=== PATIENT | male | born 1985 | race Two or more races ===

== ENCOUNTER 2022-03-31 00:12 | Inpatient (IN) | payer SELFPAY ==
[~2022-03-31] VITALS: Ht 177.8 cm; Wt 75.0 kg
[2022-03-31] VITALS (23 sets, daily range): BP systolic 116–140; BP diastolic 60–85
[2022-03-31] MEDS ORDERED: ondansetron/PF 4mg/2ml inj IV ONE (00:50)
[2022-03-31] MEDS ORDERED: fentaNYL/PF 50MCG/1 ML 2ML syringe IV ONE (00:50)
[2022-03-31] MEDS ORDERED: normal saline 1000ml 1,000 ML IV ONE (00:50)
[2022-03-31 00:53] LABS: BASOPHILS # (AUTO) 0.1 X10'3 (0-0.2); BASOPHILS % (AUTO) 0.5 % (0-1); EOSINOPHILS # (AUTO) 0.1 X10'3 (0-0.9); EOSINOPHILS % (AUTO) 0.4 % (0-6); HEMATOCRIT 45.8 % (42.0-52.0); HEMOGLOBIN 15.7 g/dl (14.0-17.9); LYMPHOCYTES # (AUTO) 1.3 X10'3 (1.1-4.8); LYMPHOCYTES % (AUTO) 8.4 % (21-51); MEAN CORPUSCULAR HEMOGLOBIN 30.7 PG (27.0-31.0); MEAN CORPUSCULAR HGB CONC 34.2 g/dL (33.0-36.5); MEAN CORPUSCULAR VOLUME 89.9 FL (78-98); MEAN PLATELET VOLUME 9.3 FL (7.4-10.4); MONOCYTES % (AUTO) 6.4 % (2-12); NEUTROPHILS # (AUTO) 13.1 X10'3 (1.8-7.7); NEUTROPHILS % (AUTO) 84.3 % (42-75); PLATELET COUNT 287 X10'3 (140-440); RED CELL DISTRIBUTION WIDTH 14.2 % (11.5-14.5); WHITE BLOOD COUNT 15.5 X10'3 (4.5-11.0)
[2022-03-31 01:08] LABS: ALANINE AMINOTRANSFERASE 56 U/L (12-78); ALBUMIN/GLOBULIN RATIO 1.2 (1.1-1.5); ALKALINE PHOSPHATASE 64 IU/L (46-116); ANION GAP 8 (8-16); ASPARTATE AMINO TRANSFERASE 21 U/L (10-37); BILIRUBIN,TOTAL 0.2 MG/DL (0.1-1.0); BLOOD UREA NITROGEN 18 MG/DL (7-18); BUN/CREATININE RATIO 16.4 (5.4-32.0); CALCIUM 8.9 MG/DL (8.5-10.1); CHLORIDE 106 MMOL/L (99-107); GLUCOSE 136 MG/DL (70-104); LIPASE 246 U/L (73-393); POTASSIUM 3.6 MMOL/L (3.5-5.1); SODIUM 141 MMOL/L (135-145); TOTAL PROTEIN 7.4 G/DL (6.4-8.2); eGFR 76 ML/MIN
[2022-03-31] MEDS ORDERED: morphine 4 MG/ML inj SYRINge IV ONE ×2 (04:00→07:25)
[2022-03-31] MEDS ORDERED: piperacillin/tazo 3.375gm/50ml 50 ML IV ONE (04:15)
[2022-03-31] MEDS ORDERED: HYDROmorphone 1 mg/ml syringe IV ONE (04:45)
[2022-03-31] MEDS ORDERED: pantoprazole IV 80 MG in normal saline 100ml IV soln 100 ML IV ONE (04:45)
[2022-03-31] MEDS ORDERED: POTASSIUM BICARB 20meq eff tab 20 MEQ TABLET.EFF PO PRN ×2 (06:05)
[2022-03-31] MEDS ORDERED: mag hydrox/Alum hydrox/simeth 30ml oral suspension PO PRN (06:05)
[2022-03-31] MEDS ORDERED: magnesium Cl slow-release 64mg tablet PO PRN (06:05)
[2022-03-31] MEDS ORDERED: magnesium hydroxide 30ml (MOM) UD suspension PO PRN (06:05)
[2022-03-31] MEDS ORDERED: magnesium 2GM in 50ml NS 50 ML IV PRN (06:05)
[2022-03-31] MEDS ORDERED: magnesium 4gm in 100ml NS 100 ML IV PRN (06:05)
[2022-03-31] MEDS ORDERED: acetaminophen 325mg tablet PO PRN (06:05)
[2022-03-31] MEDS ORDERED: HYDROmorphone/PF 0.2 MG/ML SYRINGE IV PRN (06:05)
[2022-03-31] MEDS ORDERED: ondansetron/PF 4mg/2ml inj IV PRN ×2 (06:05→13:00)
[2022-03-31] MEDS ORDERED: potassium CL 10mEq/100ml bag 100 ML IV PRN (06:05)
--- NOTE | 2022-03-31 07:13 | NUR ---
PT IS YELLING OUT IN PAIN. PT LAST DOSE OF PAIN MEDS WAS <2 HOURS AGO. PT WAS GIVEN MORPHINE AND DILAUIDID. NEXT DOSE OF PAIN MEDS IS NOT DUE FOR 2 HOURS.
--- NOTE | 2022-03-31 07:34 | NUR ---
PER DR. BRAVO, GIVE MORPHINE NOW FOR PAIN. HE WILL ALSO ORDER PRN DOSE IN ADDITION TO PAIN MED ORDERS BY HOSPITALIST. TO DISCUSS CHANGES WITH HOSPITALIST.
[2022-03-31] MEDS: dextrose 5%-1/2 normal saline 1,000 ML IV SCH ×2 (07:36→23:57)
[2022-03-31] MEDS: piperacillin/tazo 3.375gm/50ml 50 ML IV SCH ×2 (07:36→21:00)
[2022-03-31] MEDS: docusate sod 100mg capsule PO SCH ×2 (08:00→20:00)
[2022-03-31] MEDS: K and/or MAG REPLACEMENT MC SCH ×2 (08:00→20:00)
[2022-03-31 08:05] LABS: MAGNESIUM 1.8 MG/DL (1.5-2.4); POTASSIUM 3.8 MMOL/L (3.5-5.1)
[2022-03-31] MEDS: HYDROmorphone inj. 0.5 MG/0.5 ML DISP.SYRIN IV PRN ×2 (11:16→19:03)
[2022-03-31] MEDS: pantoprazole 40MG/NS 100ML BAG 100 ML IV SCH ×2 (11:24→21:26)
[2022-03-31 11:55] LABS: UA COLLECTION TYPE URINAL
[2022-03-31 11:56] LABS: CLARITY,URINE CLEAR (Clear); COLOR,URINE YELLOW (Yellow); GLUCOSE, URINE NEGATIVE (Neg); KETONES,URINE NEGATIVE (Neg); LEUKOCYTE ESTERASE ,URINE NEGATIVE (Neg); NITRITES, URINE NEGATIVE (Neg); OCCULT BLOOD,URINE NEGATIVE (Neg); PH,URINE 6.5 (4.8-8.0); PROTEIN,URINE NEGATIVE (Neg); UROBILINOGEN,URINE 0.2 E.U/dL (0.2-1.0)
[2022-03-31 11:59] LABS: URINE AMPHETAMINE SCREEN NEGATIVE (Neg); URINE BARBITUATE SCREEN NEGATIVE (Neg); URINE BENZODIAZEPINES SCREEN NEGATIVE (Neg); URINE CANNABINOID SCREEN POSITIVE (Neg); URINE COCAINE SCREEN NEGATIVE (Neg); URINE METHADONE SCREEN NEGATIVE (Neg); URINE OPIATE SCREEN POSITIVE (Neg); URINE PHENCYCLIDINE SCREEN NEGATIVE (Neg)
--- NOTE | 2022-03-31 11:59 | NUR ---
PT TO OR
[2022-03-31] MEDS ORDERED: glycopyrrolate 0.2mg/ml inj ONE (12:45)
[2022-03-31] MEDS ORDERED: LIDOcaine 2% (20mg/ml) 5ml vial ONE (12:45)
[2022-03-31] MEDS ORDERED: dexamethasone sod phosphate 4mg/ml inj. ONE (12:45)
[2022-03-31] MEDS ORDERED: fentaNYL /PF 50mcg/ml 5ml ampule ONE (12:45)
[2022-03-31] MEDS ORDERED: ondansetron/PF 4mg/2ml inj ONE (12:45)
[2022-03-31] MEDS ORDERED: rocuronium 10mg/ml inj IV ONE (12:45)
[2022-03-31] MEDS ORDERED: propofol inj 20 ML IV ONE (12:46)
[2022-03-31] MEDS ORDERED: morphine 4 MG/ML inj SYRINge IV PRN (13:00)
[2022-03-31] MEDS ORDERED: labetalol 20mg/4ml (5mg/ml) syringe IV PRN (13:00)
[2022-03-31] MEDS ORDERED: hydrALAZINE 20mg/ml inj. IV PRN (13:00)
[2022-03-31] MEDS ORDERED: fentaNYL/PF 50MCG/1 ML 2ML syringe IV PRN ×2 (13:00)
[2022-03-31] MEDS ORDERED: morphine 2 MG/ML inj. syringe IV PRN (13:00)
[2022-03-31] MEDS ORDERED: ringers solution, lacted 1,000 ML IV SCH (13:00)
[2022-03-31] MEDS ORDERED: BUPIVACAINE liposomal/PF 13.3 MG/ML vial IM ONE (13:07)
[2022-03-31] MEDS ORDERED: BUPIVAcaine/PF 2.5mg/ml (0.25%) 10ml vial ONE (13:09)
[2022-03-31] MEDS ORDERED: sevoflurane 250ml liquid IH ONE (13:11)
--- NOTE | 2022-03-31 14:10 | NUR ---
Received from OR via BED, accompanied by Anesthesiologist CRISTIAN and report given by Anesthesiolgist. PT SEMI AWAKE AND VERY AGITATED, TRYING TO PULL NGT OUT. PT OXYGENATING WELL ON 10 LPM O2 VIA MASK ,NO RESP DISTRESS NOTED. NO NAUSEA, PT HAS NGT IN L NARE. NO C/O PAIN AT THIS TIME. MIDLINE ABD INCISION WITH ISLAND DSG, VERY SCANT AMOUNT OF SANGINOUS DRAINAGE SEEN. VSS, SCDS ON.
[2022-03-31] MEDS ORDERED: midazolam 1 mg/ML 2ml injection ONE (14:13)
--- NOTE | 2022-03-31 14:15 | NUR ---
DR FOSTER GAVE VERBAL ORDER FOR VERSED 2 MG IV, MED WAS OVERRIDDEN PT WAS HIGHLY AGITATED AND TRYTO PULL OUT NGT. DEMEROL 25 MG WAS GIVEN AROUND THE SAME TIME FOR POST OP SHIVERS, ALSO OVERRODE BECAUSE IT WAS NOT ORDERED IN POST OP SET.
[2022-03-31] MEDS ORDERED: meperidine/PF 25mg/ml syringe ONE (14:18)
--- NOTE | 2022-03-31 17:50 | NUR ---
Report called to receiving nurse. Transferred via BED Belongings WITH PT, 1 BAG OF CLOTHING AND A BACKPACK. VSS, PAIN LEVEL 3/10, TOLERABLE PER PT. PT CAN HAVE CHIPS AND SIPS, TRANSFERRED TO PCU IN STABLE CONDITION. Special Issues communicated to receiving nurse.
--- NOTE | 2022-03-31 18:05 | NUR ---
RECEIVED REPORT, PATIENT ARRIVED@ 1750, ASSUMED CARE. PT STARTED ON POST OP VITALS, NG TUBE TO LIS, LR RUNNING @ 100.
--- NOTE | 2022-03-31 19:00 | NUR ---
Patient in room U 3028 B. I have received report from Yessi MARTINEZ and had the opportunity to ask questions and assume patient care. Pt is sitting up on side of bed. Visitor at bedside. no s/s of distress, no c/o pain. BLL, call light within reach, frequently used items in reach, frequent rounding. Will continue to monitior. Addendum: 03/31/22 at 1900 by Mary Connelly RN Received report from Jordan MARTINEZ, not Yessi MARTINEZ. Addendum: 03/31/22 at 1910 by Mary Connelly RN Please disregard note, imputed on wrong bed.
[2022-03-31] MEDS ORDERED: HYDROmorphone 1 mg/ml syringe IV PRN (21:15)
[2022-03-31] MEDS: HYDROmorphone 1 mg/ml syringe IV PRN (21:29)
--- NOTE | 2022-03-31 22:13 | NUR ---
Pt pulled NG tube out. Dr Vasquez is aware and said ok to leave out if patient is tolerating well. Pt is not nauseous and says he is very comfortable, no distension noted in abdomen. Pt made aware he cannot drink any fluids at this time only ice chips.
--- NOTE | 2022-03-31 23:38 | NUR ---
Pt IV medications are not compatible per pharmacist and [facility] database, Zosyn, Protonix drip and D5 1/[address] Kingston for this patient since he would need 3 IV sites. She said to switch patient to PO protonix in the morning and to stop the IV protonix now. MD was made aware that patient had pulled out NG tube.
[2022-04-01] MEDS: piperacillin/tazo 3.375gm/50ml 50 ML IV SCH ×4 (01:39→23:08)
[2022-04-01] MEDS: HYDROmorphone 1 mg/ml syringe IV PRN ×6 (01:40→23:06)
[2022-04-01 02:00] VITALS: BP 110/55
[2022-04-01] MEDS: dextrose 5%-1/2 normal saline 1,000 ML IV SCH ×3 (02:05→18:48)
[2022-04-01 06:00] VITALS: BP 124/72
[2022-04-01 06:12] LABS: BASOPHILS % (AUTO) 0.1 % (0-1); EOSINOPHILS % (AUTO) 0 % (0-6); HEMATOCRIT 41.9 % (42.0-52.0); HEMOGLOBIN 14.2 g/dl (14.0-17.9); LYMPHOCYTES # (AUTO) 1.2 X10'3 (1.1-4.8); LYMPHOCYTES % (AUTO) 9.7 % (21-51); MEAN CORPUSCULAR HEMOGLOBIN 30.5 PG (27.0-31.0); MEAN CORPUSCULAR HGB CONC 33.9 g/dL (33.0-36.5); MEAN PLATELET VOLUME 9.9 FL (7.4-10.4); MONOCYTES # (AUTO) 0.9 X10'3 (0-0.9); MONOCYTES % (AUTO) 7.4 % (2-12); NEUTROPHILS # (AUTO) 10.3 X10'3 (1.8-7.7); NEUTROPHILS % (AUTO) 82.8 % (42-75); PLATELET COUNT 230 X10'3 (140-440); RED BLOOD COUNT 4.65 X10'6 (4.70-6.10); RED CELL DISTRIBUTION WIDTH 14.5 % (11.5-14.5); WHITE BLOOD COUNT 12.5 X10'3 (4.5-11.0)
[2022-04-01 06:28] LABS: ALANINE AMINOTRANSFERASE 56 U/L (12-78); ALBUMIN/GLOBULIN RATIO 0.8 (1.1-1.5); ALKALINE PHOSPHATASE 49 IU/L (46-116); ANION GAP 5 (8-16); ASPARTATE AMINO TRANSFERASE 23 U/L (10-37); BILIRUBIN,TOTAL 0.8 MG/DL (0.1-1.0); BLOOD UREA NITROGEN 13 MG/DL (7-18); BUN/CREATININE RATIO 11.9 (5.4-32.0); CALCIUM 8.5 MG/DL (8.5-10.1); CHLORIDE 104 MMOL/L (99-107); CREATININE 1.09 MG/DL (0.60-1.10); GLUCOSE 125 MG/DL (70-104); POTASSIUM 4.2 MMOL/L (3.5-5.1); SODIUM 137 MMOL/L (135-145); TOTAL CARBON DIOXIDE 28.1 MMOL/L (24-32); TOTAL PROTEIN 6.7 G/DL (6.4-8.2); eGFR 77 ML/MIN
--- NOTE | 2022-04-01 06:51 | NUR ---
Problems reprioritized. Patient report given, questions answered & plan of care reviewed with MICHELLE Ortega.
[2022-04-01] MEDS: K and/or MAG REPLACEMENT MC SCH ×2 (07:47→19:52)
[2022-04-01] MEDS: docusate sod 100mg capsule PO SCH ×2 (07:50→19:58)
[2022-04-01] MEDS: pantoprazole 40mg Tablet.DR PO SCH ×2 (07:51→19:58)
[2022-04-01 15:00] VITALS: BP 146/84
[2022-04-01] MEDS ORDERED: NO HOME MEDS (15:46)
[2022-04-01] MEDS: oxyCODONE/APAP 10/325mg tablet PO PRN (17:31)
[2022-04-01 18:00] VITALS: BP 157/87
--- NOTE | 2022-04-01 18:30 | NUR ---
Patient in room PCU 3028. I have received report from Ben MARTINEZ and had the opportunity to ask questions and assume patient care.
[2022-04-01 22:00] VITALS: BP 127/77
[2022-04-02] MEDS: oxyCODONE/APAP 10/325mg tablet PO PRN ×4 (01:04→23:19)
[2022-04-02 02:30] VITALS: BP 145/76
[2022-04-02] MEDS: dextrose 5%-1/2 normal saline 1,000 ML IV SCH ×2 (03:54→14:27)
[2022-04-02] MEDS: HYDROmorphone 1 mg/ml syringe IV PRN ×4 (04:21→20:14)
--- NOTE | 2022-04-02 04:39 | NUR ---
patient did ambulate x 2, so far still no gas psss, went to bathroom try to number 2 but unsuccessful.
[2022-04-02 06:00] VITALS: BP 125/85
--- NOTE | 2022-04-02 06:12 | NUR ---
Problems reprioritized. Patient report given, questions answered & plan of care reviewed with Jordan MARTINEZ.
[2022-04-02 06:40] LABS: BASOPHILS % (AUTO) 0.5 % (0-1); EOSINOPHILS # (AUTO) 0.1 X10'3 (0-0.9); EOSINOPHILS % (AUTO) 1.3 % (0-6); HEMOGLOBIN 14.3 g/dl (14.0-17.9); LYMPHOCYTES # (AUTO) 1.2 X10'3 (1.1-4.8); LYMPHOCYTES % (AUTO) 16.7 % (21-51); MEAN CORPUSCULAR HEMOGLOBIN 31.2 PG (27.0-31.0); MEAN CORPUSCULAR HGB CONC 34.2 g/dL (33.0-36.5); MEAN CORPUSCULAR VOLUME 91.5 FL (78-98); MEAN PLATELET VOLUME 9.4 FL (7.4-10.4); MONOCYTES # (AUTO) 0.7 X10'3 (0-0.9); MONOCYTES % (AUTO) 9.9 % (2-12); NEUTROPHILS # (AUTO) 5.3 X10'3 (1.8-7.7); NEUTROPHILS % (AUTO) 71.6 % (42-75); PLATELET COUNT 190 X10'3 (140-440); RED BLOOD COUNT 4.59 X10'6 (4.70-6.10); RED CELL DISTRIBUTION WIDTH 14.2 % (11.5-14.5); WHITE BLOOD COUNT 7.4 X10'3 (4.5-11.0)
[2022-04-02 06:54] LABS: ALANINE AMINOTRANSFERASE 45 U/L (12-78); ALBUMIN 2.9 G/DL (3.4-5.0); ALBUMIN/GLOBULIN RATIO 0.8 (1.1-1.5); ALKALINE PHOSPHATASE 46 IU/L (46-116); ANION GAP 8 (8-16); ASPARTATE AMINO TRANSFERASE 20 U/L (10-37); BILIRUBIN,TOTAL 0.7 MG/DL (0.1-1.0); BLOOD UREA NITROGEN 11 MG/DL (7-18); CALCIUM 8.6 MG/DL (8.5-10.1); CHLORIDE 103 MMOL/L (99-107); CREATININE 0.92 MG/DL (0.60-1.10); GLUCOSE 91 MG/DL (70-104); SODIUM 139 MMOL/L (135-145); TOTAL CARBON DIOXIDE 28.4 MMOL/L (24-32); TOTAL PROTEIN 6.7 G/DL (6.4-8.2); eGFR > 90 ML/MIN
[2022-04-02] MEDS: K and/or MAG REPLACEMENT MC SCH ×2 (07:16→20:00)
[2022-04-02] MEDS: pantoprazole 40mg Tablet.DR PO SCH ×2 (08:49→20:11)
[2022-04-02] MEDS: docusate sod 100mg capsule PO SCH ×2 (08:50→20:11)
[2022-04-02] MEDS: piperacillin/tazo 3.375gm/50ml 50 ML IV SCH ×2 (08:51→15:32)
[2022-04-02 11:00] VITALS: BP 143/80
[2022-04-02 15:00] VITALS: BP 127/72
[2022-04-02 18:00] VITALS: BP 126/78
--- NOTE | 2022-04-02 18:40 | NUR ---
Patient in room PCU 3028. I have received report from OLY MARTINEZ and had the opportunity to ask questions and assume patient care.
[2022-04-02 22:00] VITALS: BP 136/80
[2022-04-03] MEDS: piperacillin/tazo 3.375gm/50ml 50 ML IV SCH ×4 (01:07→23:41)
[2022-04-03 02:00] VITALS: BP 122/81
[2022-04-03] MEDS: dextrose 5%-1/2 normal saline 1,000 ML IV SCH ×3 (03:09→23:43)
[2022-04-03] MEDS: HYDROmorphone 1 mg/ml syringe IV PRN ×4 (03:16→21:54)
--- NOTE | 2022-04-03 06:52 | NUR ---
Problems reprioritized. Patient report given, questions answered & plan of care reviewed with DARLYN RN.
[2022-04-03 06:59] VITALS: BP 141/85
--- NOTE | 2022-04-03 07:04 | NUR ---
Patient in room PCU 3028. I have received report from Lele MARTINEZ and had the opportunity to ask questions and assume patient care.
[2022-04-03 07:19] LABS: BASOPHILS % (AUTO) 0.7 % (0-1); EOSINOPHILS # (AUTO) 0.2 X10'3 (0-0.9); EOSINOPHILS % (AUTO) 3.1 % (0-6); HEMATOCRIT 42.3 % (42.0-52.0); HEMOGLOBIN 14.4 g/dl (14.0-17.9); LYMPHOCYTES % (AUTO) 18.5 % (21-51); MEAN CORPUSCULAR HEMOGLOBIN 30.9 PG (27.0-31.0); MEAN CORPUSCULAR HGB CONC 34.1 g/dL (33.0-36.5); MEAN CORPUSCULAR VOLUME 90.6 FL (78-98); MEAN PLATELET VOLUME 9.7 FL (7.4-10.4); MONOCYTES # (AUTO) 0.5 X10'3 (0-0.9); MONOCYTES % (AUTO) 9.5 % (2-12); NEUTROPHILS # (AUTO) 3.5 X10'3 (1.8-7.7); NEUTROPHILS % (AUTO) 68.2 % (42-75); PLATELET COUNT 201 X10'3 (140-440); RED BLOOD COUNT 4.67 X10'6 (4.70-6.10); RED CELL DISTRIBUTION WIDTH 13.7 % (11.5-14.5); WHITE BLOOD COUNT 5.1 X10'3 (4.5-11.0)
[2022-04-03 07:32] LABS: ALANINE AMINOTRANSFERASE 45 U/L (12-78); ALBUMIN 2.8 G/DL (3.4-5.0); ALBUMIN/GLOBULIN RATIO 0.8 (1.1-1.5); ALKALINE PHOSPHATASE 56 IU/L (46-116); ANION GAP 8 (8-16); ASPARTATE AMINO TRANSFERASE 25 U/L (10-37); BILIRUBIN,TOTAL 1.5 MG/DL (0.1-1.0); BLOOD UREA NITROGEN 12 MG/DL (7-18); BUN/CREATININE RATIO 12.6 (5.4-32.0); CALCIUM 8.7 MG/DL (8.5-10.1); CHLORIDE 102 MMOL/L (99-107); CREATININE 0.95 MG/DL (0.60-1.10); GLUCOSE 87 MG/DL (70-104); POTASSIUM 3.5 MMOL/L (3.5-5.1); SODIUM 138 MMOL/L (135-145); TOTAL CARBON DIOXIDE 28.2 MMOL/L (24-32); TOTAL PROTEIN 6.5 G/DL (6.4-8.2); eGFR 90 ML/MIN
[2022-04-03] MEDS: K and/or MAG REPLACEMENT MC SCH ×2 (08:00→20:00)
[2022-04-03] MEDS: docusate sod 100mg capsule PO SCH ×2 (09:35→20:18)
[2022-04-03] MEDS: pantoprazole 40mg Tablet.DR PO SCH ×2 (09:35→20:10)
[2022-04-03 11:00] VITALS: BP 142/82
[2022-04-03] MEDS: oxyCODONE/APAP 10/325mg tablet PO PRN ×2 (14:22→20:17)
[2022-04-03 15:00] VITALS: BP 142/92
[2022-04-03 18:00] VITALS: BP 121/79
--- NOTE | 2022-04-03 18:40 | NUR ---
Patient in room PCU 3028. I have received report from Milton MARTINEZ and had the opportunity to ask questions and assume patient care.
--- NOTE | 2022-04-03 19:46 | NUR ---
Problems reprioritized. Patient report given, questions answered & plan of care reviewed with Annette MARTINEZ.
[2022-04-03 22:00] VITALS: BP 132/85
[2022-04-04] MEDS: oxyCODONE/APAP 10/325mg tablet PO PRN ×3 (02:29→15:55)
[2022-04-04 03:00] VITALS: BP 130/78
[2022-04-04] MEDS: HYDROmorphone 1 mg/ml syringe IV PRN ×3 (04:08→22:58)
--- NOTE | 2022-04-04 04:21 | NUR ---
Called MD with critical value of BC gram + cocci clusters in aerobic bottle drawn 03/31. New order to start vancomycin 1 gram daily.
[2022-04-04] MEDS ORDERED: vancomycin 1,750 MG in NS 350ml IV soln IV ONE ×2 (05:30→06:00)
[2022-04-04 05:58] LABS: BASOPHILS % (AUTO) 0.8 % (0-1); EOSINOPHILS # (AUTO) 0.2 X10'3 (0-0.9); EOSINOPHILS % (AUTO) 4.1 % (0-6); HEMATOCRIT 41.3 % (42.0-52.0); HEMOGLOBIN 14.3 g/dl (14.0-17.9); LYMPHOCYTES # (AUTO) 0.8 X10'3 (1.1-4.8); LYMPHOCYTES % (AUTO) 18.1 % (21-51); MEAN CORPUSCULAR HEMOGLOBIN 30.7 PG (27.0-31.0); MEAN CORPUSCULAR HGB CONC 34.6 g/dL (33.0-36.5); MEAN CORPUSCULAR VOLUME 88.8 FL (78-98); MEAN PLATELET VOLUME 9.1 FL (7.4-10.4); MONOCYTES # (AUTO) 0.6 X10'3 (0-0.9); MONOCYTES % (AUTO) 13.9 % (2-12); NEUTROPHILS # (AUTO) 2.7 X10'3 (1.8-7.7); NEUTROPHILS % (AUTO) 63.1 % (42-75); PLATELET COUNT 230 X10'3 (140-440); RED BLOOD COUNT 4.66 X10'6 (4.70-6.10); RED CELL DISTRIBUTION WIDTH 13.5 % (11.5-14.5); WHITE BLOOD COUNT 4.3 X10'3 (4.5-11.0)
[2022-04-04 06:00] VITALS: BP 132/75
[2022-04-04 06:10] LABS: ALANINE AMINOTRANSFERASE 60 U/L (12-78); ALBUMIN 2.9 G/DL (3.4-5.0); ALBUMIN/GLOBULIN RATIO 0.8 (1.1-1.5); ALKALINE PHOSPHATASE 80 IU/L (46-116); ANION GAP 8 (8-16); ASPARTATE AMINO TRANSFERASE 32 U/L (10-37); BILIRUBIN,TOTAL 0.9 MG/DL (0.1-1.0); BLOOD UREA NITROGEN 11 MG/DL (7-18); BUN/CREATININE RATIO 12.6 (5.4-32.0); CALCIUM 8.8 MG/DL (8.5-10.1); CHLORIDE 104 MMOL/L (99-107); CREATININE 0.87 MG/DL (0.60-1.10); GLUCOSE 99 MG/DL (70-104); POTASSIUM 3.2 MMOL/L (3.5-5.1); SODIUM 136 MMOL/L (135-145); TOTAL CARBON DIOXIDE 24.2 MMOL/L (24-32); TOTAL PROTEIN 6.6 G/DL (6.4-8.2); eGFR > 90 ML/MIN
--- NOTE | 2022-04-04 06:51 | NUR ---
Problems reprioritized. Patient report given, questions answered & plan of care reviewed with Gogo MARTINEZ.
[2022-04-04] MEDS ORDERED: vancomycin/NS 1 GM ADD-VANTAGE 250 ML IV SCH (08:00)
[2022-04-04] MEDS: docusate sod 100mg capsule PO SCH ×2 (08:12→21:20)
[2022-04-04] MEDS: pantoprazole 40mg Tablet.DR PO SCH ×2 (08:12→21:20)
[2022-04-04] MEDS: K and/or MAG REPLACEMENT MC SCH ×2 (08:13→20:00)
[2022-04-04] MEDS: piperacillin/tazo 3.375gm/50ml 50 ML IV SCH ×2 (08:13→15:55)
[2022-04-04] MEDS ORDERED: potassium Cl 20 mEq SR tablet PO STA (10:11)
[2022-04-04 11:03] VITALS: BP 127/75
--- NOTE | 2022-04-04 11:25 | NUR ---
PAGER ID: [phone] MESSAGE: LUISITO AYOUB [id number] REQUESTING NICOTINE PATCH. SMOKES 10 CIGARETTES A DAY. MARGE [id number]
[2022-04-04 12:16] LABS: H PYLORI ANTIBODY POSITIVE (Neg)
[2022-04-04] MEDS ORDERED: HYDR-3965 PO (12:21)
[2022-04-04] MEDS ORDERED: PANT40TA54 PO (12:21)
[2022-04-04] MEDS ORDERED: AMOX-580 PO (12:21)
[2022-04-04] MEDS: nicotine 14mg patch - 24hr TD SCH (13:16)
[2022-04-04 15:22] VITALS: BP 105/56
[2022-04-04] MEDS: vancomycin/NS 1 GM ADD-VANTAGE 250 ML IV SCH ×2 (16:36→23:02)
--- NOTE | 2022-04-04 17:43 | NUR ---
PAGER ID: [phone] MESSAGE: Talha Cash [id number] PHARMACY MAY NOT ACCEPT PAPER SCRIPT FOR NARCOTIC. PREFERRED PHARMACY ENTERED. PLEASE E-SCRIPT MEDICATIONS TO PHARMACY. THANK YOU MARGE [id number]
[2022-04-04 18:00] VITALS: BP 139/75
--- NOTE | 2022-04-04 18:25 | NUR ---
GAVE REPORT TO GINETTE MARTINEZ.
--- NOTE | 2022-04-04 18:30 | NUR ---
Patient in room PCU 3028. I have received report from Gogo MARTINEZ and had the opportunity to ask questions and assume patient care.
--- NOTE | 2022-04-04 18:40 | NUR ---
Patient in room PCU 3028. I have received report from Gogo Gonzalez and had the opportunity to ask questions and assume patient care.
--- NOTE | 2022-04-04 20:44 | NUR ---
Per day shift, Pt. was given a one time dose for potassium by .
[2022-04-04 22:00] VITALS: BP 137/86
[2022-04-05] MEDS: piperacillin/tazo 3.375gm/50ml 50 ML IV SCH ×2 (01:01→09:34)
[2022-04-05 02:00] VITALS: BP 133/78
[2022-04-05 06:00] VITALS: BP 133/77
--- NOTE | 2022-04-05 06:30 | NUR ---
Problems reprioritized. Patient report given, questions answered & plan of care reviewed with Naomi MARTINEZ. RN aware of written prescription in chart and to call [facility] pharmacy in [place].
--- NOTE | 2022-04-05 06:40 | NUR ---
Patient in room PCU 3024L. I have received report from MICHELLE PENG and had the opportunity to ask questions and assume patient care.
[2022-04-05 06:53] LABS: BASOPHILS % (AUTO) 0.7 % (0-1); EOSINOPHILS # (AUTO) 0.2 X10'3 (0-0.9); EOSINOPHILS % (AUTO) 2.1 % (0-6); HEMATOCRIT 42.8 % (42.0-52.0); HEMOGLOBIN 14.6 g/dl (14.0-17.9); LYMPHOCYTES # (AUTO) 0.9 X10'3 (1.1-4.8); LYMPHOCYTES % (AUTO) 11.7 % (21-51); MEAN CORPUSCULAR HEMOGLOBIN 30.5 PG (27.0-31.0); MEAN CORPUSCULAR HGB CONC 34.1 g/dL (33.0-36.5); MEAN CORPUSCULAR VOLUME 89.5 FL (78-98); MEAN PLATELET VOLUME 8.9 FL (7.4-10.4); MONOCYTES # (AUTO) 0.7 X10'3 (0-0.9); MONOCYTES % (AUTO) 9.8 % (2-12); NEUTROPHILS # (AUTO) 5.6 X10'3 (1.8-7.7); NEUTROPHILS % (AUTO) 75.7 % (42-75); PLATELET COUNT 246 X10'3 (140-440); RED BLOOD COUNT 4.78 X10'6 (4.70-6.10); RED CELL DISTRIBUTION WIDTH 13.6 % (11.5-14.5); WHITE BLOOD COUNT 7.4 X10'3 (4.5-11.0)
[2022-04-05] MEDS: pantoprazole 40mg Tablet.DR PO SCH (07:25)
[2022-04-05] MEDS: nicotine 14mg patch - 24hr TD SCH (07:26)
[2022-04-05] MEDS: oxyCODONE/APAP 10/325mg tablet PO PRN (07:26)
[2022-04-05] MEDS: vancomycin/NS 1 GM ADD-VANTAGE 250 ML IV SCH (07:27)
[2022-04-05 07:36] LABS: ALANINE AMINOTRANSFERASE 49 U/L (12-78); ALBUMIN 2.9 G/DL (3.4-5.0); ALBUMIN/GLOBULIN RATIO 0.7 (1.1-1.5); ALKALINE PHOSPHATASE 83 IU/L (46-116); ANION GAP 13 (8-16); ASPARTATE AMINO TRANSFERASE 21 U/L (10-37); BILIRUBIN,TOTAL 0.8 MG/DL (0.1-1.0); BLOOD UREA NITROGEN 13 MG/DL (7-18); BUN/CREATININE RATIO 14.6 (5.4-32.0); CALCIUM 9.1 MG/DL (8.5-10.1); CHLORIDE 103 MMOL/L (99-107); CREATININE 0.89 MG/DL (0.60-1.10); GLUCOSE 74 MG/DL (70-104); POTASSIUM 3.8 MMOL/L (3.5-5.1); SODIUM 137 MMOL/L (135-145); TOTAL CARBON DIOXIDE 21.5 MMOL/L (24-32); TOTAL PROTEIN 6.8 G/DL (6.4-8.2); eGFR > 90 ML/MIN
[2022-04-05] MEDS: docusate sod 100mg capsule PO SCH (07:46)
[2022-04-05] MEDS: K and/or MAG REPLACEMENT MC SCH (08:00)
[2022-04-05] MEDS ORDERED: AMOX-101 PO (10:05)
[2022-04-05] MEDS ORDERED: BISM262T46 PO (10:05)
[2022-04-05] MEDS ORDERED: CLAR250T39 PO (10:05)
[2022-04-05 11:00] VITALS: BP 132/81
--- NOTE | 2022-04-05 13:53 | NUR ---
PATIENT STABLE AND APPROPRIATE FOR DISCHARGE, IV REMOVED, TELE REMOVED, SCRIPTS FOR NEW MEDS GIVEN TO PATIENT, PAIN MEDS E-SCRIPTED TO PREFERRED PHARMACY, EDUCATION GIVEN, ALL BELONGINGS SENT WITH PATIENT, PATIENT TAKEN TO LOBBY BY WHEELCHAIR TO AN AWAITING CAR WHERE FRIEND WILL TAKE PATIENT HOME
[2022-04-05] MEDS ORDERED: VANCOMYCIN LEVEL IV ONE (15:30)
== END 2022-04-05 13:40 | disposition home or self-care (01) | DRG 329 ==
LOC: ER 00:13 → ED HOLD 06:08 → PCU 3S 17:53
PROVIDERS: ADMIT Internal Medicine; ATTEND Family Medicine
PROC: 3E0T3BZ Introduction of Anesthetic Agent into Peripheral Nerves and Plexi, Percutaneous Approach (ICD-10-PCS; 2022-03-31)
PROC: 3E0T33Z Introduction of Anti-inflammatory into Peripheral Nerves and Plexi, Percutaneous Approach (ICD-10-PCS; 2022-03-31)
PROC: 0DU907Z Supplement Duodenum with Autologous Tissue Substitute, Open Approach (ICD-10-PCS; principal; 2022-03-31 13:11)
DX: K26.5 Chronic or unspecified duodenal ulcer with perforation (principal); K65.9 Peritonitis, unspecified; Z20.822 Contact with and (suspected) exposure to COVID-19; F17.210 Nicotine dependence, cigarettes, uncomplicated; K21.9 Gastro-esophageal reflux disease without esophagitis; R10.0 Acute abdomen; Z71.6 Tobacco abuse counseling
CPT/HCPCS: 96365; 96375; 99285; Z7506; 36415; 71045; 74176; 80053; 80305; 81003; 83605; 83690; 83735; 84132; 84145; 85025; 86677; 87040; 87077; 87186; 97116; 97161; A4618; A7000; C1758; C9113; C9290; G0378; J1100; J1170; J2175; J2250; J2270; J2405; J2543; J2704; J3010; J3370; J3490; J7030; J7040; J7042; J7120

== ENCOUNTER 2022-05-29 16:33 | Emergency (ER) | payer SELFPAY ==
[~2022-05-29] VITALS: Ht 167.6 cm; Wt 65.9 kg
[~2022-05-29 16:33] MED LIST: BISM262T46 PO; CLAR250T39 PO; PANT40TA54 PO
[2022-05-29] MEDS ORDERED: LACT1CAP65 PO (17:25)
[2022-05-29 17:33] LABS: BASOPHILS # (AUTO) 0.1 X10'3 (0-0.2); BASOPHILS % (AUTO) 1.3 % (0-1); EOSINOPHILS # (AUTO) 0.1 X10'3 (0-0.9); EOSINOPHILS % (AUTO) 1.1 % (0-6); HEMATOCRIT 47.2 % (42.0-52.0); HEMOGLOBIN 16.2 g/dl (14.0-17.9); LYMPHOCYTES # (AUTO) 2.6 X10'3 (1.1-4.8); LYMPHOCYTES % (AUTO) 29.7 % (21-51); MEAN CORPUSCULAR HEMOGLOBIN 30.7 PG (27.0-31.0); MEAN CORPUSCULAR HGB CONC 34.4 g/dL (33.0-36.5); MEAN CORPUSCULAR VOLUME 89.3 FL (78-98); MEAN PLATELET VOLUME 9.7 FL (7.4-10.4); MONOCYTES # (AUTO) 0.8 X10'3 (0-0.9); NEUTROPHILS # (AUTO) 5.2 X10'3 (1.8-7.7); NEUTROPHILS % (AUTO) 58.9 % (42-75); PLATELET COUNT 219 X10'3 (140-440); RED BLOOD COUNT 5.28 X10'6 (4.70-6.10); RED CELL DISTRIBUTION WIDTH 13.7 % (11.5-14.5); WHITE BLOOD COUNT 8.8 X10'3 (4.5-11.0)
[2022-05-29] MEDS ORDERED: diazepam inj 5 MG/ML inj. IV ONE ×2 (17:35→18:20)
[2022-05-29] MEDS ORDERED: ketorolac trometh. 30mg/ml inj. IV ONE (17:35)
[2022-05-29 17:38] LABS: ALANINE AMINOTRANSFERASE 38 U/L (12-78); ALBUMIN 4.4 G/DL (3.4-5.0); ALBUMIN/GLOBULIN RATIO 1.3 (1.1-1.5); ALKALINE PHOSPHATASE 63 IU/L (46-116); ANION GAP 11 (8-16); ASPARTATE AMINO TRANSFERASE 25 U/L (10-37); BILIRUBIN,TOTAL 0.4 MG/DL (0.1-1.0); BLOOD UREA NITROGEN 22 MG/DL (7-18); CALCIUM 8.8 MG/DL (8.5-10.1); CHLORIDE 107 MMOL/L (99-107); GLUCOSE 90 MG/DL (70-104); POTASSIUM 4.2 MMOL/L (3.5-5.1); SODIUM 141 MMOL/L (135-145); TOTAL CARBON DIOXIDE 23.4 MMOL/L (24-32); TOTAL PROTEIN 7.9 G/DL (6.4-8.2); eGFR 76 ML/MIN
[2022-05-29] MEDS ORDERED: ondansetron/PF 4mg/2ml inj IV ONE (18:10)
[2022-05-29] MEDS ORDERED: morphine 4 MG/ML inj SYRINge IV ONE (18:10)
[2022-05-29] MEDS ORDERED: PRED10TA PO (18:36)
[2022-05-29] MEDS ORDERED: CYCL-1 PO (18:36)
[2022-05-29 18:48] VITALS: BP 128/92
== END 2022-05-29 18:56 | disposition home or self-care (01) ==
LOC: ER 16:34
DX: M65.841 Other synovitis and tenosynovitis, right hand (principal); K21.9 Gastro-esophageal reflux disease without esophagitis; Z98.890 Other specified postprocedural states
CPT/HCPCS: 36415; 71045; 73030; 80053; 83880; 84484; 85025; 93005; 96374; 96375; 99285; J1885; J2270; J2405; J3360; J7030